=== PATIENT | male | born 1940 | race Caucasian/White ===

== ENCOUNTER 2017-01-18 12:27 | Inpatient (IN) | payer MEDICARE, OTHER ==
[~2017-01-18] VITALS: Ht 167.6 cm; Wt 117.3 kg
[~2017-01-18 12:27] MED LIST: ASPI81TA50 PO; CHOL100011 PO; CYAN1TAB29 PO; DOCU50CA8 PO; ETOD400T PO; FINA5TAB4 PO; GABA300C10 PO; HYDR-3138 PO; HYDR12.58 PO; METH750T2 PO; MULT-658 PO; OMEG1CAP23 PO; SIMV40TA3 PO; TAMS0.4C2 PO; VALS80TA3 PO
[2017-01-18] MEDS ORDERED: ONDANSETRON 2MG/ML, 2ML IVPush ONE (13:00)
[2017-01-18] MEDS ORDERED: SODIUM CHLORIDE FLUSH 10ML SYR IVF ONE (13:00)
[2017-01-18] MEDS ORDERED: MORPHINE SULFATE 4 MG/ML, 1ML ONE ×2 (13:15→17:38)
[2017-01-18] MEDS ORDERED: ONDANSETRON 2MG/ML, 2ML ONE (13:15)
[2017-01-18 13:26] LABS: ASPARTATE AMINO TRANSFERASE 21 U/L (15-37); BLOOD UREA NITROGEN 13 mg/dL (7-18)
[2017-01-18] MEDS: MORPHINE SULFATE 4 MG/ML, 1ML IVPush PRN ×2 (14:01→17:47)
[2017-01-18] MEDS ORDERED: OMNIPAQUE 350 MG/ML, 100ML BOTTLE ONE (14:10)
[2017-01-18] MEDS ORDERED: BISACODYL 10 MG SUPP PR PRN (18:30)
[2017-01-18] MEDS ORDERED: POLYETHYLENE GLYCOL 17 GM PACKET PO PRN (18:30)
[2017-01-18] MEDS ORDERED: ONDANSETRON 2MG/ML, 2ML IVPush PRN (18:30)
[2017-01-18] MEDS ORDERED: ACETAMINOPHEN 325 MG TABLET PO PRN (18:30)
[2017-01-18] MEDS ORDERED: CEFTRIAXONE PMX 1GM/50ML 50 ML IV SCH (19:00)
[2017-01-18 19:28] VITALS: BP 160/98
[2017-01-18] MEDS: SODIUM CHLORIDE FLUSH 10ML SYR IVF SCH (21:20)
[2017-01-18] MEDS: OXYcodone IR 5MG TABLET PO PRN (23:52)
[2017-01-19 01:30] VITALS: BP 152/94
[2017-01-19 01:35] LABS: ASPARTATE AMINO TRANSFERASE 18 U/L (15-37); BLOOD UREA NITROGEN 14 mg/dL (7-18)
[2017-01-19 07:51] VITALS: BP 143/89
[2017-01-19] MEDS: SODIUM CHLORIDE FLUSH 10ML SYR IVF SCH ×2 (08:25→19:58)
[2017-01-19] MEDS: OXYcodone IR 5MG TABLET PO PRN ×3 (08:25→19:33)
[2017-01-19] MEDS: SENNA/DOCUSATE TABLET PO SCH (08:25)
[2017-01-19 13:51] VITALS: BP 151/90
[2017-01-19] MEDS ORDERED: CEFTRIAXONE PMX 1GM/50ML 50 ML IV SCH (19:00)
[2017-01-19 20:02] VITALS: BP 152/92
[2017-01-20 02:42] VITALS: BP 166/99
[2017-01-20 07:41] VITALS: BP 160/100
[2017-01-20] MEDS: SENNA/DOCUSATE TABLET PO SCH (07:59)
[2017-01-20] MEDS: OXYcodone IR 5MG TABLET PO PRN ×3 (07:59→20:35)
[2017-01-20] MEDS: SODIUM CHLORIDE FLUSH 10ML SYR IVF SCH ×2 (07:59→20:35)
[2017-01-20] MEDS: morphine SULFATE 10 MG/ML, 1ML IVPush PRN ×2 (10:59→16:04)
[2017-01-20 14:00] VITALS: BP 163/94
[2017-01-20 18:57] VITALS: BP 165/95
[2017-01-20] MEDS ORDERED: ACETAMINOPHEN 325 MG TABLET PO PRN (20:00)
[2017-01-20] MEDS ORDERED: BISACODYL 10 MG SUPP PR PRN (20:00)
[2017-01-20] MEDS ORDERED: ONDANSETRON 2MG/ML, 2ML IVPush PRN (20:00)
[2017-01-20] MEDS ORDERED: morphine SULFATE 10 MG/ML, 1ML IVPush PRN (20:00)
[2017-01-21 02:04] VITALS: BP 146/90
[2017-01-21] MEDS: OXYcodone IR 5MG TABLET PO PRN ×5 (02:17→20:55)
[2017-01-21 07:29] VITALS: BP 141/89
[2017-01-21] MEDS: SODIUM CHLORIDE FLUSH 10ML SYR IVF SCH ×2 (09:00→21:00)
[2017-01-21] MEDS: SENNA/DOCUSATE TABLET PO SCH (10:20)
[2017-01-21] MEDS: POLYETHYLENE GLYCOL 17 GM PACKET PO PRN (10:20)
[2017-01-21 13:23] VITALS: BP 146/92
[2017-01-21 18:42] VITALS: BP 137/84
[2017-01-21 22:55] LABS: PATH.CAST-FLAG 0; SPERM-FLAG 0; SRC-FLAG 3; XTAL-FLAG 0; YLC-FLAG 0
[2017-01-22 00:10] VITALS: BP 127/83
[2017-01-22] MEDS: OXYcodone IR 5MG TABLET PO PRN ×5 (04:17→21:56)
[2017-01-22 08:02] VITALS: BP 129/81
[2017-01-22] MEDS: SODIUM CHLORIDE FLUSH 10ML SYR IVF SCH ×2 (09:00→21:00)
[2017-01-22] MEDS: SENNA/DOCUSATE TABLET PO SCH (09:50)
[2017-01-22 15:20] VITALS: BP 151/85
[2017-01-22 20:00] VITALS: BP 128/81
[2017-01-23 02:00] VITALS: BP 137/92
[2017-01-23] MEDS: OXYcodone IR 5MG TABLET PO PRN ×3 (02:19→10:56)
[2017-01-23 07:26] VITALS: BP 130/89
[2017-01-23] MEDS: SENNA/DOCUSATE TABLET PO SCH (07:33)
[2017-01-23] MEDS: POLYETHYLENE GLYCOL 17 GM PACKET PO PRN (07:33)
[2017-01-23] MEDS: SODIUM CHLORIDE FLUSH 10ML SYR IVF SCH (07:33)
[2017-01-23] MEDS ORDERED: SENN1TAB7 PO (12:54)
[2017-01-23] MEDS ORDERED: OXYC5TAB3 PO (12:54)
[2017-01-23 14:20] VITALS: BP 165/92
== END 2017-01-23 14:36 | disposition home health service (06) | DRG 699 ==
LOC: ED 13:42 → EDIP 18:00 → 3NE 18:35
PROVIDERS: ADMIT Internal Medicine; ATTEND Hospitalist
DX: S37.022A Major contusion of left kidney, initial encounter (principal); N39.0 Urinary tract infection, site not specified; S22.42XA Multiple fractures of ribs, left side, initial encounter for closed fracture; J98.11 Atelectasis; Z68.41 Body mass index [BMI] 40.0-44.9, adult; G47.30 Sleep apnea, unspecified; I10 Essential (primary) hypertension; K57.30 Diverticulosis of large intestine without perforation or abscess without bleeding; N20.0 Calculus of kidney; G89.29 Other chronic pain; M19.90 Unspecified osteoarthritis, unspecified site; M51.36 Other intervertebral disc degeneration, lumbar region; M48.06 Spinal stenosis, lumbar region; K76.0 Fatty (change of) liver, not elsewhere classified; N28.1 Cyst of kidney, acquired; N40.0 Benign prostatic hyperplasia without lower urinary tract symptoms; R31.0 Gross hematuria; Z96.653 Presence of artificial knee joint, bilateral; Q63.0 Accessory kidney; Z82.49 Family history of ischemic heart disease and other diseases of the circulatory system; Z99.81 Dependence on supplemental oxygen; Z90.49 Acquired absence of other specified parts of digestive tract; Z79.82 Long term (current) use of aspirin; Z79.899 Other long term (current) drug therapy; Z87.891 Personal history of nicotine dependence; W01.0XXA Fall on same level from slipping, tripping and stumbling without subsequent striking against object, initial encounter; Y92.096 Garden or yard of other non-institutional residence as the place of occurrence of the external cause; Y93.H2 Activity, gardening and landscaping; Y99.8 Other external cause status
CPT/HCPCS: 36415; 71010; 71020; 74177; 80053; 81001; 85014; 85018; 85025; 87086; 93306; 96374; 96375; 96376; J0696; J2405; Q9967; J2270

== ENCOUNTER → 2017-02-08 | Outpatient (CLI) | payer MEDICARE, OTHER ==
[~2017-02-08] MED LIST changes: +OXYC5TAB3 PO; +SENN1TAB7 PO
== END | disposition home or self-care (01) ==
LOC: CFH 12:32
PROVIDERS: ATTEND Urology
DX: N40.1 Benign prostatic hyperplasia with lower urinary tract symptoms (principal); N13.30 Unspecified hydronephrosis; N20.0 Calculus of kidney; M54.5 Low back pain
CPT/HCPCS: 76770

== ENCOUNTER → 2017-05-28 | Outpatient (CLI) | payer MEDICARE, OTHER ==
[~2017-05-28] VITALS: Ht 162.6 cm; Wt 118.2 kg
[~2017-05-28] MED LIST changes: +DOCU50CA11 PO; -DOCU50CA8 PO; -HYDR-3138 PO; +HYDR-3237 PO; +TAMS-11 PO; +ZOLP-413 PO
[2017-05-28 13:46] LABS: HEMATOCRIT 42.5 % (39.2-51.8); HEMOGLOBIN 14.4 g/dL (13.7-18.0)
[2017-05-28 13:55] LABS: ASPARTATE AMINO TRANSFERASE 17 U/L (15-37); BLOOD UREA NITROGEN 20 mg/dL (7-18)
== END | disposition home or self-care (01) ==
LOC: STAR 13:00 → EDSTATUS 05-29 13:30
PROVIDERS: ATTEND Orthopaedic Surgery Orthopaedic Surgery of the Spine
DX: Z01.818 Encounter for other preprocedural examination (principal); M48.061 Spinal stenosis, lumbar region without neurogenic claudication; M54.16 Radiculopathy, lumbar region
CPT/HCPCS: 36415; 80053; 81003; 85025; 93005

== ENCOUNTER → 2017-06-11 | Outpatient (CLI) | payer MEDICARE, OTHER ==
[~2017-06-11] MED LIST changes: +REGADENOSON 0.4 MG/5 ML SYRINGE ONE
== END | disposition home or self-care (01) ==
LOC: CFH 08:21
PROVIDERS: ATTEND Internal Medicine Cardiovascular Disease
DX: Z01.810 Encounter for preprocedural cardiovascular examination (principal); I10 Essential (primary) hypertension; N28.1 Cyst of kidney, acquired
CPT/HCPCS: 76770; 78452; 93017; A9502; J2785

== ENCOUNTER 2018-08-16 15:45 | Emergency (ER) | payer MEDICARE, OTHER ==
[~2018-08-16] VITALS: Ht 165.1 cm; Wt 123.0 kg
[~2018-08-16 15:45] MED LIST changes: +DOCU-180 PO; -HYDR12.58 PO; +HYDROCHLOROTH12.5 MG PO; -REGADENOSON 0.4 MG/5 ML SYRINGE ONE; +SENN-177 PO; -SENN1TAB7 PO
--- NOTE | 2018-08-16 16:22 | NUR ---
PT. IS A & O X 4 WITH EARLIER C/O [place] PAIN AND HIGH BLOOD PRESSURE. PT. DENIES CHEST PAIN BUT WANTED TO BE EVALUATED FOR ANY POTENTIAL CARDIAC PROBLEMS. PT. IS PINK, WARM AND DRY. LUNGS ARE CTA. MM ARE PINK AND MOIST WITH PULSES +2 THROUGHOUT. IV ACCESS WAS ESTABLISHED. 12 LEAD EKG ORDERED. PT. HAS THE CP MONITOR IN PLACE. PT. IS RESTING WITH THE HOB ELEVATED GREATER THAN 30 DEGREES. SIDERAILS ARE UP X 2 WITH THE CALL LIGHT IN PLACE.
[2018-08-16] MEDS ORDERED: MORPHINE SULFATE 4 MG/ML, 1ML ONE (16:27)
[2018-08-16] MEDS ORDERED: ONDANSETRON 2MG/ML, 2ML ONE (16:27)
[2018-08-16] MEDS ORDERED: ONDANSETRON 2MG/ML, 2ML IVPush ONE (16:30)
[2018-08-16] MEDS ORDERED: SODIUM CHLORIDE FLUSH 10ML SYR IVF ONE (16:30)
[2018-08-16] MEDS ORDERED: MORPHINE SULFATE 4 MG/ML, 1ML IVPush PRN (16:30)
[2018-08-16 16:31] LABS: BASOPHILS # (AUTO) 0.05 x10^3/uL (0-0.1); BASOPHILS % (AUTO) 1 % (0-1); EOSINOPHILS # (AUTO) 0.05 x10^3/uL (0-0.4); EOSINOPHILS % (AUTO) 1 % (1-7); LYMPHOCYTES # (AUTO) 0.87 x10^3/uL (1-3.4); LYMPHOCYTES % (AUTO) 16 % (22-44); MD NO; MEAN CORPUSCULAR HEMOGLOBIN 31.6 pg (27.5-34.5); MEAN CORPUSCULAR HGB CONC 33.5 g/dL (33.2-36.2); MEAN CORPUSCULAR VOLUME 94.4 fL (81-97); MEAN PLATELET VOLUME 8.5 fL (7.4-10.4); MONOCYTES # (AUTO) 0.39 x10^3/uL (0.2-0.8); MONOCYTES % (AUTO) 7 % (2-9); NEUTROPHILS # (AUTO) 4.21 x10^3/uL (1.8-6.8); NEUTROPHILS % (AUTO) 76 % (42-75); PLATELET COUNT 179 x10^3/uL (130-400); RED BLOOD COUNT 5.09 x10^6/uL (4.38-5.82); RED CELL DISTRIBUTION WIDTH 13.4 % (9.4-14.8)
--- NOTE | 2018-08-16 16:35 | NUR ---
PT. WAS MEDICATED FOR PAIN ORDERED.
[2018-08-16 16:43] LABS: ALANINE AMINOTRANSFERASE 34 U/L (12-78); ALBUMIN 3.7 g/dL (3.4-5.0); ANION GAP 7 mmol/L (5-15); CALCIUM 9.9 mg/dL (8.5-10.1); CHLORIDE 106 mmol/L (98-107); CREATININE 0.72 mg/dL (0.7-1.3)
[2018-08-16 16:47] LABS: ALKALINE PHOSPHATASE 77 U/L (45-117); BILIRUBIN,TOTAL 0.6 mg/dL (0.2-1.0); TOTAL PROTEIN 7.8 g/dL (6.4-8.2); TROPONIN I < 0.015 ng/mL (0.000-0.045)
--- NOTE | 2018-08-16 17:31 | NUR ---
PT. WAS GIVEN A BLANKET FOR WARMTH. PT. REMAINS MONITORED. BP IS IMPROVING. PT. HAS NO CONCERNS AT THIS TIME.
[2018-08-16] MEDS ORDERED: ACETAMINOPHEN 500 MG TABLET PO ONE (18:00)
[2018-08-16] MEDS ORDERED: HYDROcodone/APAP 5/325 TABLET PO ONE (18:00)
[2018-08-16] MEDS ORDERED: HYDROcodone/APAP 5/325 TABLET ONE ×2 (18:08→18:16)
[2018-08-16] MEDS ORDERED: ACETAMINOPHEN 500 MG TABLET ONE (18:09)
--- NOTE | 2018-08-16 18:09 | NUR ---
PT. WAS AMBULATORY WITH A STEADY GAIT. PT. RETURNED TO HIS ROOM AND WAS MEDICATED FOR PAIN AND CONTINUED ELEVATED BP.
--- NOTE | 2018-08-16 18:48 | NUR ---
PT. REPORTS RELIEF FROM PAIN MEDS. CONTINUOUS MONITORING IN PLACE. DISCUSSED VITALS WITH PAMELA KRUSE. SIDERAILS REMAIN UP X 2 WITH THE CALL LIGHT IN PLACE. REPORT GIVEN.
--- NOTE | 2018-08-16 18:55 | NUR ---
ASSUMED CARE OF PATIENT. BEDSIDE REPORT GIVEN FROM FERNIE STARK
--- NOTE | 2018-08-16 19:02 | NUR ---
DR LIPSCOMB IN ROOM UPDATING PATIENT
[2018-08-16 19:23] VITALS: BP 166/106
[2018-08-17] MEDS ORDERED: VALSARTAN 80 MG TABLET PO SCH (09:00)
== END 2018-08-16 19:25 | disposition home or self-care (01) ==
LOC: ED 16:35
DX: R51 Headache (principal); G89.29 Other chronic pain; M54.5 Low back pain; I10 Essential (primary) hypertension
CPT/HCPCS: 36415; 71045; 80053; 83880; 84484; 85025; 93005; 96374; 96375; 99284; J2405

== ENCOUNTER → 2018-09-11 | Outpatient (CLI) | payer MEDICARE, OTHER ==
[~2018-09-11] MED LIST changes: +OMEP20TA62 PO; +PRAM0.12 PO
== END | disposition home or self-care (01) ==
LOC: STAR 10:52
PROVIDERS: ATTEND Genetic Counselor, MS
DX: K21.9 Gastro-esophageal reflux disease without esophagitis (principal); K22.2 Esophageal obstruction; E66.9 Obesity, unspecified; I10 Essential (primary) hypertension; E11.9 Type 2 diabetes mellitus without complications; Z87.891 Personal history of nicotine dependence
CPT/HCPCS: 93005

== ENCOUNTER 2018-09-17 07:45 | Day surgery (SDC) | payer MEDICARE, OTHER ==
[~2018-09-17] VITALS: Ht 167.6 cm; Wt 121.0 kg
[2018-09-17] MEDS ORDERED: LACTATED RINGERS 1,000 ML IV SCH (08:51)
[2018-09-17 09:37] VITALS: BP 163/116
[2018-09-17] MEDS ORDERED: hydrALAzine 20 MG/ML, 1ML ONE ×2 (09:53→10:53)
[2018-09-17] MEDS ORDERED: hydrALAzine 20 MG/ML, 1ML IV PRN (10:00)
[2018-09-17] MEDS ORDERED: FENTANYL PF 100 MCG/2ML IV PRN (10:00)
[2018-09-17] MEDS ORDERED: hydrALAzine 20 MG/ML, 1ML IV ONE (10:00)
[2018-09-17] MEDS ORDERED: ONDANSETRON 2MG/ML, 2ML IV PRN (10:00)
[2018-09-17] MEDS ORDERED: METOPROLOL 1 MG/ML, 5ML IV PRN (10:00)
[2018-09-17] MEDS ORDERED: LABETALOL 5MG/ML, 20ML IV PRN (10:00)
[2018-09-17] MEDS ORDERED: PROPOFOL 10 MG/ML, 50ML ONE (10:11)
== END 2018-09-17 11:55 | disposition home or self-care (01) ==
LOC: OUT 07:45
PROVIDERS: ATTEND Internal Medicine Gastroenterology
DX: K22.2 Esophageal obstruction (principal); K44.9 Diaphragmatic hernia without obstruction or gangrene; K29.60 Other gastritis without bleeding; K29.50 Unspecified chronic gastritis without bleeding; E78.00 Pure hypercholesterolemia, unspecified; I10 Essential (primary) hypertension; Z98.890 Other specified postprocedural states
CPT/HCPCS: 43239; 43248; 88305; J0360; J2704; J7120

== ENCOUNTER 2019-04-27 16:11 | Inpatient (IN) | payer MEDICARE, OTHER ==
[~2019-04-27] VITALS: Ht 165.1 cm; Wt 127.7 kg
[2019-04-27 17:56] LABS: BASOPHILS # (AUTO) 0.02 x10^3/uL (0-0.1); BASOPHILS % (AUTO) 0 % (0-1); EOSINOPHILS # (AUTO) 0.29 x10^3/uL (0-0.4); EOSINOPHILS % (AUTO) 5 % (1-7); LYMPHOCYTES % (AUTO) 21 % (22-44); MD NO; MEAN CORPUSCULAR HEMOGLOBIN 32.9 pg (27.5-34.5); MEAN CORPUSCULAR HGB CONC 33.8 g/dL (33.2-36.2); MEAN CORPUSCULAR VOLUME 97.3 fL (81-97); MEAN PLATELET VOLUME 9.1 fL (7.4-10.4); MONOCYTES # (AUTO) 0.56 x10^3/uL (0.2-0.8); MONOCYTES % (AUTO) 10 % (2-9); NEUTROPHILS # (AUTO) 3.65 x10^3/uL (1.8-6.8); NEUTROPHILS % (AUTO) 64 % (42-75); PLATELET COUNT 156 x10^3/uL (130-400); RED BLOOD COUNT 4.86 x10^6/uL (4.38-5.82); RED CELL DISTRIBUTION WIDTH 12.7 % (9.4-14.8)
[2019-04-27 18:04] LABS: ALBUMIN 3.9 g/dL (3.4-5.0); ANION GAP 5 mmol/L (5-15); CALCIUM 9.5 mg/dL (8.5-10.1); CHLORIDE 107 mmol/L (98-107); CREATININE 0.94 mg/dL (0.7-1.3)
--- NOTE | 2019-04-27 18:30 | NUR ---
TASK RN - PT TO ROOM FROM [facility]. PT PRESENTS TO ED FOR LEFT LEG SWELLING X APPROX 5 DAYS. PT REFERRED TO ED FROM TODAY FOR POSSIBLE DVT. PT RESTING ON GURNEY. VSS. CALL LIGHT IN REACH. FAMILY AT BEDSIDE. PT DENIES ANY CHEST PAIN OR SOB. AWAITING MD FOR ORDERS.
--- NOTE | 2019-04-27 18:38 | NUR ---
MD TO BEDSIDE FOR EXAM.
[2019-04-27 19:08] LABS: INTERNATIONAL NORMALIZED RATIO 1.01 (0.93-1.1); PROTHROMBIN TIME 10.6 Seconds (9.6-11.5)
--- NOTE | 2019-04-27 19:13 | NUR ---
PT RESTING IN ROOM. VSS. NO NEEDS EXPRESSED. CALL LIGHT WTIHIN REACH. AWAITING LAB RESUTLS.
[2019-04-27 20:36] VITALS: BP 164/100
[2019-04-27] MEDS ORDERED: PROMETHAZINE 25 MG/ML, 1ML IM PRN (22:30)
[2019-04-27] MEDS ORDERED: BISACODYL 10 MG SUPP PR PRN (22:30)
[2019-04-27] MEDS ORDERED: ONDANSETRON 2MG/ML, 2ML IVPush PRN (22:30)
[2019-04-27] MEDS ORDERED: DOCUSATE 100 MG CAPSULE PO PRN ×2 (22:30)
[2019-04-27] MEDS ORDERED: ONDANSETRON ODT 4 MG PO PRN (22:30)
[2019-04-27] MEDS ORDERED: HEPARIN 25,000 UNITS/500ML PMX 500 ML IV PRN (22:30)
[2019-04-27] MEDS ORDERED: ACETAMINOPHEN 325 MG TABLET PO PRN (22:30)
[2019-04-27] MEDS ORDERED: POLYETHYLENE GLYCOL 17 GM PACKET PO PRN (22:30)
[2019-04-27] MEDS ORDERED: OXYcodone IR 5MG TABLET PO PRN (22:30)
[2019-04-27] MEDS ORDERED: hydrALAzine 20 MG/ML, 1ML IVPush PRN (22:30)
[2019-04-27] MEDS ORDERED: HEPARIN 5,000 UNITS/ML, 1ML IV PRN (22:30)
[2019-04-27] MEDS ORDERED: HEPARIN 5,000 UNITS/ML, 1ML IV ONE (22:30)
[2019-04-27] MEDS: GABAPENTIN 300 MG CAPSULE PO SCH (22:42)
[2019-04-27] MEDS: HYDROcodone/APAP 5/325 TABLET PO PRN (22:42)
[2019-04-27 23:18] LABS: FREE T4 (FREE THYROXINE) 0.95 ng/dL (0.76-1.46)
[2019-04-27 23:28] LABS: HEMOGLOBIN A1C 5.7 % (4.2-6.3)
[2019-04-28 01:34] VITALS: BP 159/84
[2019-04-28] MEDS: OMEPRAZOLE 20 MG CAPSULE.DR PO SCH (06:02)
[2019-04-28 06:05] LABS: BASOPHILS # (AUTO) 0.04 x10^3/uL (0-0.1); BASOPHILS % (AUTO) 1 % (0-1); EOSINOPHILS # (AUTO) 0.32 x10^3/uL (0-0.4); EOSINOPHILS % (AUTO) 6 % (1-7); LYMPHOCYTES # (AUTO) 1.37 x10^3/uL (1-3.4); LYMPHOCYTES % (AUTO) 25 % (22-44); MD NO; MEAN CORPUSCULAR HEMOGLOBIN 33.2 pg (27.5-34.5); MEAN CORPUSCULAR HGB CONC 33.7 g/dL (33.2-36.2); MEAN CORPUSCULAR VOLUME 98.4 fL (81-97); MEAN PLATELET VOLUME 9.4 fL (7.4-10.4); MONOCYTES # (AUTO) 0.67 x10^3/uL (0.2-0.8); MONOCYTES % (AUTO) 13 % (2-9); NEUTROPHILS % (AUTO) 56 % (42-75); PLATELET COUNT 153 x10^3/uL (130-400); RED BLOOD COUNT 4.39 x10^6/uL (4.38-5.82); RED CELL DISTRIBUTION WIDTH 13.1 % (9.4-14.8)
[2019-04-28 06:15] LABS: ALANINE AMINOTRANSFERASE 27 U/L (12-78); ALBUMIN 3.2 g/dL (3.4-5.0); ANION GAP 6 mmol/L (5-15); CALCIUM 8.7 mg/dL (8.5-10.1); CHLORIDE 107 mmol/L (98-107)
[2019-04-28 06:18] LABS: ALKALINE PHOSPHATASE 58 U/L (45-117); BILIRUBIN,TOTAL 0.5 mg/dL (0.2-1.0); CHOL/HDL RATIO 6.1; CHOLESTEROL, TOTAL 215 mg/dL (140-239); CREATININE 0.85 mg/dL (0.7-1.3); HDL CHOL % 16 % (26-37); HDL CHOLESTEROL (DIRECT) 35 mg/dL (40-60); LDL CHOLESTEROL,CALCULATED 130 mg/dL (54-169); LDL/HDL RATIO 3.7 (0.5-3.0); TOTAL PROTEIN 6.8 g/dL (6.4-8.2); TRIGLYCERIDES 251 mg/dL (50-200); VLDL CHOLESTEROL 50 mg/dL (0-25)
[2019-04-28 07:33] VITALS: BP 153/99
[2019-04-28] MEDS: GABAPENTIN 300 MG CAPSULE PO SCH ×2 (08:07→20:28)
[2019-04-28] MEDS: VALSARTAN 80 MG TABLET PO SCH (08:07)
[2019-04-28] MEDS: TAMSULOSIN 0.4 MG CAP.ER.24H PO SCH (08:07)
[2019-04-28] MEDS: FINASTERIDE 5 MG TABLET PO SCH (08:07)
[2019-04-28 13:14] VITALS: BP 145/82
[2019-04-28] MEDS: HYDROcodone/APAP 5/325 TABLET PO PRN ×2 (15:00→23:27)
[2019-04-28] MEDS ORDERED: OMNIPAQUE 350 MG/ML, 150 ML BOTTLE ONE (15:25)
[2019-04-28] MEDS ORDERED: APIX5TAB PO (16:38)
[2019-04-28] MEDS ORDERED: ATOR-2 PO (16:46)
[2019-04-28] MEDS: APIXABAN 5 MG TABLET PO SCH (18:45)
[2019-04-28 19:40] VITALS: BP 146/97
[2019-04-28] MEDS ORDERED: APIXABAN 5 MG TABLET PO SCH (21:00)
[2019-04-29 01:04] VITALS: BP 150/95
[2019-04-29] MEDS: OMEPRAZOLE 20 MG CAPSULE.DR PO SCH (05:59)
[2019-04-29] MEDS: APIXABAN 5 MG TABLET PO SCH ×2 (05:59→09:00)
[2019-04-29] MEDS: HYDROcodone/APAP 5/325 TABLET PO PRN (06:03)
[2019-04-29 07:45] VITALS: BP 130/92
[2019-04-29] MEDS: VALSARTAN 80 MG TABLET PO SCH (08:52)
[2019-04-29] MEDS: GABAPENTIN 300 MG CAPSULE PO SCH (08:52)
[2019-04-29] MEDS: TAMSULOSIN 0.4 MG CAP.ER.24H PO SCH (08:53)
[2019-04-29] MEDS: FINASTERIDE 5 MG TABLET PO SCH (08:54)
[2019-05-05] MEDS ORDERED: APIXABAN 5 MG TABLET PO SCH (21:00)
== END 2019-04-29 10:20 | disposition home or self-care (01) | DRG 300 ==
LOC: ED 20:14 → EDIP 20:18 → 3N 20:28 → DCLOUNGE 04-29 10:08
PROVIDERS: ADMIT Family Medicine; ATTEND Internal Medicine
DX: I82.432 Acute embolism and thrombosis of left popliteal vein (principal); Z68.42 Body mass index [BMI] 45.0-49.9, adult; I31.3 Pericardial effusion (noninflammatory); E66.9 Obesity, unspecified; I11.9 Hypertensive heart disease without heart failure; K44.9 Diaphragmatic hernia without obstruction or gangrene; M47.816 Spondylosis without myelopathy or radiculopathy, lumbar region; M51.36 Other intervertebral disc degeneration, lumbar region; N40.0 Benign prostatic hyperplasia without lower urinary tract symptoms; R91.1 Solitary pulmonary nodule; Z96.653 Presence of artificial knee joint, bilateral; Z87.891 Personal history of nicotine dependence; Z79.01 Long term (current) use of anticoagulants
CPT/HCPCS: 36415; 71275; 80048; 80053; 80061; 82040; 83036; 83735; 84439; 84443; 85025; 85520; 85610; 85730; G0378; J1644; Q9967

== ENCOUNTER 2019-09-20 03:44 | Emergency (ER) | payer MEDICARE, OTHER ==
[~2019-09-20] VITALS: Ht 167.6 cm; Wt 128.0 kg
[~2019-09-20 03:44] MED LIST changes: +APIX5TAB PO; +ATOR-2 PO; +SIMV40TA20 PO; -SIMV40TA3 PO
[2019-09-20] MEDS ORDERED: SODIUM CHLORIDE 0.9% 1,000 ML IV ONE (04:08)
[2019-09-20] MEDS ORDERED: SODIUM CHLORIDE FLUSH 10ML SYR IVF ONE (04:30)
--- NOTE | 2019-09-20 04:45 | NUR ---
AMADO MCCRARY AND TEAM AT BEDSIDE.
[2019-09-20] MEDS ORDERED: PROPOFOL 100 ML IV ONE (04:54)
[2019-09-20] MEDS ORDERED: PROPOFOL 10 MG/ML, 20ML IVPush ONE ×2 (05:00→06:00)
--- NOTE | 2019-09-20 05:00 | NUR ---
PROCEDURE STARTED. ERP AT BEDSIDE FOR SEDATION.
--- NOTE | 2019-09-20 05:12 | NUR ---
PROCEDURE DONE. VSS
[2019-09-20] MEDS ORDERED: RIVA10TA2 PO (05:39)
--- NOTE | 2019-09-20 05:53 | NUR ---
PATIENT ALERT AND ORIENTED. VSS
[2019-09-20 06:05] VITALS: BP 134/89
--- NOTE | 2019-09-20 06:16 | NUR ---
patient alert and oriented and awake. discharged with prescription and instruction. verbalized understanding.
== END 2019-09-20 06:27 | disposition home or self-care (01) ==
LOC: ED 04:00
DX: T18.128A Food in esophagus causing other injury, initial encounter (principal); I10 Essential (primary) hypertension; Z87.891 Personal history of nicotine dependence; Z86.718 Personal history of other venous thrombosis and embolism; X58.XXXA Exposure to other specified factors, initial encounter; Y93.89 Activity, other specified; Y92.89 Other specified places as the place of occurrence of the external cause; Y99.8 Other external cause status
CPT/HCPCS: 43247; 99152; 99285; J2704; J7030

== ENCOUNTER → 2020-05-13 | Outpatient (CLI) | payer MEDICARE, OTHER ==
[~2020-05-13] MED LIST changes: +RIVA10TA2 PO
== END | disposition home or self-care (01) ==
LOC: CFH 11:16
PROVIDERS: ATTEND Internal Medicine Gastroenterology
DX: R10.13 Epigastric pain (principal); R14.0 Abdominal distension (gaseous)
CPT/HCPCS: 74018